=== PATIENT | female | born 1990 | race Caucasian/White ===

== ENCOUNTER 2018-10-22 20:06 | Emergency (ER) | payer MEDICAID ==
[~2018-10-22] VITALS: Ht 160 cm; Wt 63.5 kg
[2018-10-22 20:13] VITALS: BP_SYST 122
--- NOTE | 2018-10-22 20:16 | NUR ---
TPatient triaged and placed in waiting room. VSS and patient appears in no acute distress at this time. Accompanied by VISITOR, awaiting available bed, and MD notified of need for MSE.
--- NOTE | 2018-10-22 21:01 | NUR ---
Patient to [facility] for evaluation. Side rails up. Report given to EKELY Bartlett
--- NOTE | 2018-10-22 21:10 | NUR ---
Patient brought in complaining of insect bite to right palm 1 hour prior to arrival, now having pain to the palm and forearm. Pain 2/10. Denies any other complaints/ injuries per patient or as noted. Will continue to monitor.
--- NOTE | 2018-10-22 21:14 | NUR ---
ER Dr. Mccullough at bedside examining patient.
--- NOTE | 2018-10-22 21:18 | NUR ---
PT refused Motrin - states "I will just take my tylenol at home." Dr. Mccullough aware and okayed.
--- NOTE | 2018-10-22 21:25 | NUR ---
Patient given written and verbal discharge instructions and verbalizes understanding. ER MD Mccullough discussed with patient the results and treatment provided. Patient in stable condition. ID arm band removed. Rx of Naprosyn given. Patient educated on pain management and to follow up with PMD. Pain Scale 0. Opportunity for questions provided and answered. Medication side effect fact sheet provided.
[2018-10-22 21:26] VITALS: BP_SYST 129
[2018-10-22] MEDS ORDERED: IBUPROFEN 600 MG TABLET PO ONE (21:30)
[2018-10-22] MEDS ORDERED: PREDNISONE 20 MG TABLET PO ONE (21:30)
== END 2018-10-22 21:26 | disposition home or self-care (01) ==
LOC: SED 20:06
DX: S60.561A Insect bite (nonvenomous) of right hand, initial encounter (principal); W57.XXXA Bitten or stung by nonvenomous insect and other nonvenomous arthropods, initial encounter; Y93.89 Activity, other specified; Y92.89 Other specified places as the place of occurrence of the external cause; Y99.8 Other external cause status
CPT/HCPCS: 99282; J7512